=== PATIENT | male | born 1950 | race Two or more races ===

== ENCOUNTER 2016-04-23 03:41 | Inpatient (IN) | payer MEDICARE, MEDICAID ==
[~2016-04-23] VITALS: Ht 162.6 cm; Wt 62.3 kg
[~2016-04-23 03:41] MED LIST: ALBU0.084 IN; ALPR0.254 PO; ASPI325T4 PO; ATOR1TAB PO; DICY10CA12 PO; DIGO0.2570 PO; FLUT250M2 INH; GABA-494 PO; INSUINJ37 SUBCUT; INSUINJ47 IJ; IPRASOL41 NEB; LEVO500T3 PO; METFORMIN HCL 1000 MG PO; METO50TA7 PO; OMEP20CA5 PO; PANT40TA2 PO; SACC250C PO
[2016-04-23 04:20] LABS: Basophils # (auto) 0 uL; DEFINITIVE VIEW TRANSMISSION; Eosinophils # (auto) 0.1 uL; Eosinophils % (auto) 0.4 % (0.0-7.0); Hemoglobin 8.3 g/dL (13.5-17.5); Lymphocytes # (auto) 0.4 uL; Lymphocytes % (auto) 2.2 % (10.0-50.0); Mean Corpuscular Hemoglobin 27.6 pg (28.0-32.0); Mean Corpuscular Hgb Conc. 31.9 g/dL (32.0-36.0); Mean Corpuscular Volume 86.7 fL (80.0-100.0); Mean Platelet Volume 8.9 fL (7.4-10.4); Monocytes # (auto) 1.1 uL; Monocytes % (auto) 5.9 % (0.0-12.0); Neutrophils # (auto) 16.3 uL; Neutrophils % (auto) 91.5 % (37.0-80.0); Platelet Count (auto) 464 10^3/uL (140-450); Red Cell Distribution Width 18.1 % (11.6-16.0); White Blood Cell 17.9 10^3/uL (4.4-10.8)
[2016-04-23 04:37] LABS: BUN/Creatinine Ratio 45.8; Calcium 8.3 mg/dL (8.5-10.1)
[2016-04-23 04:40] LABS: Bilirubin, Total 0.4 mg/dL (0.2-1.0); Total Protein 6.3 g/dL (6.4-8.2)
[2016-04-23 04:50] LABS: Potassium 5.6 mmol/L (3.5-5.1)
[2016-04-23] MEDS ORDERED: LEVOFLOXACIN 500MG 100 ML IV ONE ×2 (06:00→11:00)
[2016-04-23] MEDS ORDERED: VANCOMYCIN 1GM/250ML D5W 250 ML IV ONE (06:00)
[2016-04-23] MEDS ORDERED: IOHEXOL 350 MG/ML 100ML IJ ONE (06:12)
[2016-04-23] MEDS ORDERED: ALBUTEROL SULF 2.5 MG/0.5ML(0.5%) NEB SOLN NEB ONE (06:15)
[2016-04-23] MEDS ORDERED: IPRATROPIUM BROM 0.5 MG/2.5ML INH SOL NEB ONE (06:15)
[2016-04-23] MEDS ORDERED: SODIUM BICARBONATE 8.4 % INJ 50ML VIAL IV ONE (06:30)
[2016-04-23] MEDS ORDERED: SODIUM POLYSTYRENE SULF 15GM/60ML SUSP PO ONE (06:30)
[2016-04-23] MEDS ORDERED: InsuLIN REG 1unit/0.01ml Soln (100units/ml) IV ONE (06:30)
[2016-04-23] MEDS ORDERED: DEXTROSE (50%) 50ML SYRG IV ONE (06:30)
[2016-04-23 08:16] LABS: Lactic Acid 2.4 mmol/L (0.4-2.0)
[2016-04-23 08:27] LABS: REFLEX LACTIC ACID YES OR NO YES
[2016-04-23 08:35] LABS: B-Type Natriuretic Peptide 791.54 pg/mL (0-100); Temperature: 22.9 C (20.0-25.0)
[2016-04-23] MEDS ORDERED: LIDOCAINE 2% JELLY UROJET 10 ML TOP ONE (09:05)
[2016-04-23 09:18] LABS: Lactic Acid 4.1 mmol/L (0.4-2.0)
[2016-04-23 09:48] LABS: REFLEX LACTIC ACID YES OR NO YES
[2016-04-23] MEDS ORDERED: ALPRAZolam 0.25 MG TAB PO PRN (10:30)
[2016-04-23] MEDS ORDERED: DICYCLOMINE HCL 10 MG CAP PO PRN (10:30)
[2016-04-23] MEDS ORDERED: VANCOMYCIN PER PHARMACY 0 MG IV SCH (10:30)
[2016-04-23] MEDS ORDERED: DEXTROSE (50%) 50ML SYRG IV PRN (10:30)
[2016-04-23] MEDS ORDERED: ACETAMINOPHEN 325 MG TAB PO PRN (10:45)
[2016-04-23] MEDS ORDERED: DOCUSATE SOD 100 MG CAP PO PRN (10:45)
[2016-04-23] MEDS ORDERED: HYDROcodone-ACET 5/325MG TAB PO PRN (10:45)
[2016-04-23] MEDS ORDERED: MORPHINE SULF INJ 2 MG/ML SYRINGE 1ML IV PRN ×2 (10:45)
[2016-04-23] MEDS ORDERED: PANTOPRAZOLE 40 MG TAB PO ONE (10:45)
[2016-04-23] MEDS ORDERED: ONDANSETRON HCL 4 MG/2 ML VIAL IV PRN (10:45)
[2016-04-23] MEDS ORDERED: METOPROLOL SUCCINATE XL 50 MG TAB PO ONE (10:45)
[2016-04-23] MEDS ORDERED: DIGOXIN 0.125 MG TAB PO ONE (10:45)
[2016-04-23] MEDS ORDERED: NITROGLYCERIN 0.4 MG SL TAB SL PRN (10:45)
[2016-04-23] MEDS ORDERED: ASPirin-EC 81 mg tab PO ONE (10:45)
[2016-04-23] MEDS ORDERED: INSULIN DETEMIR(LEVEMIR) 1unit/0.01ml Soln (100units/ml) SC ONE (10:45)
[2016-04-23 10:52] VITALS: BP 103/67
[2016-04-23] MEDS ORDERED: FAMOTIDINE 20 MG TAB PO ONE (11:00)
[2016-04-23] MEDS: ACCU-CHEK COMFORT CURVE STRIP VI SCH ×3 (12:00→22:06)
[2016-04-23] MEDS: ALBUTEROL SULF 2.5 MG/0.5ML(0.5%) NEB SOLN NEB SCH ×2 (12:20→19:15)
[2016-04-23] MEDS: IPRATROPIUM BROM 0.5 MG/2.5ML INH SOL NEB SCH ×2 (12:20→19:15)
[2016-04-23] MEDS: InsuLIN REG 1unit/0.01ml Soln (100units/ml) SC SCH ×3 (12:30→22:00)
[2016-04-23] MEDS: VANCOMYCIN 1GM/250ML D5W 250 ML IV SCH (13:05)
[2016-04-23] MEDS: SODIUM CHLOR 0.9% PF (SALINE LOCK) 10ML VIAL IV SCH ×2 (13:41→22:02)
[2016-04-23 15:58] VITALS: BP 100/64
[2016-04-23] MEDS ORDERED: SODIUM CHLORIDE 0.9% 500 ML IV ONE (17:45)
[2016-04-23 18:40] VITALS: BP 93/63
[2016-04-23] MEDS: SODIUM CHLORIDE 0.9% 1,000 ML IV SCH (18:45)
[2016-04-23] MEDS: BUDESONIDE (INHALATION) 0.5 MG/2 ML NEB NEB SCH (19:15)
[2016-04-23 20:30] VITALS: BP 92/59
[2016-04-23] MEDS: TEMAZEPAM 15 MG CAP PO PRN (21:42)
[2016-04-23] MEDS: ATORVASTATIN 20 MG TAB PO SCH (21:42)
[2016-04-23] MEDS: FAMOTIDINE 20 MG TAB PO SCH (21:42)
[2016-04-24 00:07] VITALS: BP 92/56
[2016-04-24] MEDS: ALBUTEROL SULF 2.5 MG/0.5ML(0.5%) NEB SOLN NEB SCH ×4 (00:18→18:59)
[2016-04-24] MEDS: IPRATROPIUM BROM 0.5 MG/2.5ML INH SOL NEB SCH ×4 (00:19→18:59)
[2016-04-24] MEDS: VANCOMYCIN 1GM/250ML D5W 250 ML IV SCH ×2 (00:51→13:05)
[2016-04-24] MEDS ORDERED: INSLANTI SC (01:56)
[2016-04-24] MEDS: SODIUM CHLOR 0.9% PF (SALINE LOCK) 10ML VIAL IV SCH ×3 (06:26→21:19)
[2016-04-24] MEDS: ACCU-CHEK COMFORT CURVE STRIP VI SCH ×4 (06:27→23:56)
[2016-04-24] MEDS: InsuLIN REG 1unit/0.01ml Soln (100units/ml) SC SCH ×4 (06:27→23:57)
[2016-04-24 06:47] LABS: Basophils # (auto) 0 uL; Basophils % (auto) 0.3 % (0.0-2.0); DEFINITIVE VIEW TRANSMISSION; Eosinophils # (auto) 0.1 uL; Eosinophils % (auto) 0.5 % (0.0-7.0); Hematocrit 24.9 % (41.0-53.0); Hemoglobin 7.9 g/dL (13.5-17.5); Lymphocytes # (auto) 0.5 uL; Lymphocytes % (auto) 3.4 % (10.0-50.0); Mean Corpuscular Hemoglobin 27.7 pg (28.0-32.0); Mean Corpuscular Hgb Conc. 31.7 g/dL (32.0-36.0); Mean Corpuscular Volume 87.3 fL (80.0-100.0); Mean Platelet Volume 9.9 fL (7.4-10.4); Monocytes # (auto) 1.2 uL; Monocytes % (auto) 8.7 % (0.0-12.0); Neutrophils # (auto) 11.9 uL; Neutrophils % (auto) 87.1 % (37.0-80.0); Platelet Count (auto) 359 10^3/uL (140-450); Red Cell Distribution Width 18.3 % (11.6-16.0); SUSPECT VIEW TRANSMISSION; White Blood Cell 13.6 10^3/uL (4.4-10.8)
[2016-04-24] MEDS: INSULIN DETEMIR(LEVEMIR) 1unit/0.01ml Soln (100units/ml) SC SCH (06:59)
[2016-04-24 07:08] LABS: Calcium 8.1 mg/dL (8.5-10.1); Potassium 4.3 mmol/L (3.5-5.1)
[2016-04-24 07:11] LABS: Albumin 1.7 g/dL (3.4-5.0); BUN/Creatinine Ratio 48.8
[2016-04-24 07:14] LABS: Bilirubin, Total 0.3 mg/dL (0.2-1.0)
[2016-04-24] MEDS ORDERED: PNEUMOCOCCAL VACC POLYS 25 MCG/0.5 ML VIAL IM ONE (07:30)
[2016-04-24 08:00] VITALS: BP 111/69
[2016-04-24] MEDS ORDERED: PATIENTS OWN MEDICATION PO SCH ×2 (10:00)
[2016-04-24] MEDS ORDERED: PATIENTS OWN MEDICATION IN SCH ×2 (10:00)
[2016-04-24] MEDS: BUDESONIDE (INHALATION) 0.5 MG/2 ML NEB NEB SCH ×2 (10:00→18:59)
[2016-04-24] MEDS: LINAGLIPTIN 5 MG PO SCH (10:00)
[2016-04-24] MEDS: TIOTROPIUM IN SCH (10:00)
[2016-04-24] MEDS: METOPROLOL SUCCINATE XL 50 MG TAB PO SCH (10:00)
[2016-04-24] MEDS: LEVOFLOXACIN 500MG 100 ML IV SCH (10:42)
[2016-04-24] MEDS: PANTOPRAZOLE 40 MG TAB PO SCH (10:43)
[2016-04-24] MEDS: FAMOTIDINE 20 MG TAB PO SCH ×2 (10:43→21:20)
[2016-04-24] MEDS: ASPirin-EC 81 mg tab PO SCH (10:43)
[2016-04-24] MEDS: MULTIPLE VITAMIN TAB PO SCH (10:43)
[2016-04-24] MEDS: DIGOXIN 0.125 MG TAB PO SCH (10:44)
[2016-04-24 12:00] VITALS: BP 100/68
[2016-04-24] MEDS ORDERED: methylPREDNISolone SOD SUCC 40 MG/ML VL IV ONE (14:30)
[2016-04-24 16:00] VITALS: BP 104/67
[2016-04-24] MEDS: methylPREDNISolone SOD SUCC 40 MG/ML VL IV SCH (18:10)
[2016-04-24] MEDS: ACETYLCYSTEINE 10 %(100MG/ML) SOL 4ML NEB SCH (18:59)
[2016-04-24 20:00] VITALS: BP 93/54
[2016-04-24] MEDS: SODIUM CHLORIDE 0.9% 1,000 ML IV SCH (21:19)
[2016-04-24] MEDS: ATORVASTATIN 20 MG TAB PO SCH (21:20)
[2016-04-25] VITALS (13 sets, daily range): BP systolic 93–114; BP diastolic 58–82
[2016-04-25] MEDS: methylPREDNISolone SOD SUCC 40 MG/ML VL IV SCH ×5 (00:02→23:31)
[2016-04-25] MEDS: IPRATROPIUM BROM 0.5 MG/2.5ML INH SOL NEB SCH ×5 (01:02→23:50)
[2016-04-25] MEDS: ALBUTEROL SULF 2.5 MG/0.5ML(0.5%) NEB SOLN NEB SCH ×5 (01:02→23:50)
[2016-04-25] MEDS: ACETYLCYSTEINE 10 %(100MG/ML) SOL 4ML NEB SCH ×5 (01:02→23:50)
[2016-04-25] MEDS: VANCOMYCIN 1GM/250ML D5W 250 ML IV SCH ×2 (01:46→13:21)
[2016-04-25] MEDS: SODIUM CHLORIDE 0.9% 1,000 ML IV SCH ×2 (03:05→19:45)
[2016-04-25] MEDS: SODIUM CHLOR 0.9% PF (SALINE LOCK) 10ML VIAL IV SCH ×3 (05:22→22:35)
[2016-04-25] MEDS: ACCU-CHEK COMFORT CURVE STRIP VI SCH ×4 (06:06→22:00)
[2016-04-25 06:10] LABS: Albumin 1.8 g/dL (3.4-5.0); BUN/Creatinine Ratio 42.6; Calcium 8.6 mg/dL (8.5-10.1); Potassium 4.9 mmol/L (3.5-5.1)
[2016-04-25 06:12] LABS: Bilirubin, Total 0.1 mg/dL (0.2-1.0); Total Protein 6.3 g/dL (6.4-8.2)
[2016-04-25 06:13] LABS: Basophils # (auto) 0 uL; Basophils % (auto) 0.1 % (0.0-2.0); DEFINITIVE VIEW TRANSMISSION; Eosinophils # (auto) 0 uL; Hematocrit 22.6 % (41.0-53.0); Lymphocytes # (auto) 0.3 uL; Lymphocytes % (auto) 3.1 % (10.0-50.0); Mean Corpuscular Hgb Conc. 31.2 g/dL (32.0-36.0); Mean Corpuscular Volume 89.6 fL (80.0-100.0); Mean Platelet Volume 9.6 fL (7.4-10.4); Monocytes # (auto) 0.2 uL; Monocytes % (auto) 2.1 % (0.0-12.0); Neutrophils # (auto) 9.2 uL; Neutrophils % (auto) 94.7 % (37.0-80.0); Platelet Count (auto) 353 10^3/uL (140-450); Red Cell Distribution Width 18.8 % (11.6-16.0); SUSPECT VIEW TRANSMISSION; White Blood Cell 9.8 10^3/uL (4.4-10.8)
[2016-04-25] MEDS: InsuLIN REG 1unit/0.01ml Soln (100units/ml) SC SCH ×4 (06:56→22:39)
[2016-04-25] MEDS: INSULIN DETEMIR(LEVEMIR) 1unit/0.01ml Soln (100units/ml) SC SCH (06:57)
[2016-04-25] MEDS ORDERED: DEXTROSE (50%) 50ML SYRG IV PRN (09:00)
[2016-04-25] MEDS: METOPROLOL SUCCINATE XL 50 MG TAB PO SCH (09:28)
[2016-04-25] MEDS: LEVOFLOXACIN 500MG 100 ML IV SCH (09:32)
[2016-04-25] MEDS: ASPirin-EC 81 mg tab PO SCH (09:33)
[2016-04-25] MEDS: FAMOTIDINE 20 MG TAB PO SCH ×2 (09:33→22:35)
[2016-04-25] MEDS: LINAGLIPTIN 5 MG PO SCH (09:33)
[2016-04-25] MEDS: PANTOPRAZOLE 40 MG TAB PO SCH (09:33)
[2016-04-25] MEDS: MULTIPLE VITAMIN TAB PO SCH (09:33)
[2016-04-25] MEDS: DIGOXIN 0.125 MG TAB PO SCH (09:33)
[2016-04-25] MEDS: TIOTROPIUM IN SCH (10:00)
[2016-04-25] MEDS: Boost Glucose Control 8 Ounces PO SCH (18:00)
[2016-04-25] MEDS: BUDESONIDE (INHALATION) 0.5 MG/2 ML NEB NEB SCH ×2 (18:50→19:19)
[2016-04-25] MEDS: ATORVASTATIN 20 MG TAB PO SCH (22:35)
[2016-04-25] MEDS: TEMAZEPAM 15 MG CAP PO PRN (23:31)
[2016-04-26] VITALS (10 sets, daily range): BP systolic 102–124; BP diastolic 64–82
[2016-04-26] MEDS: VANCOMYCIN 1GM/250ML D5W 250 ML IV SCH ×2 (01:11→13:11)
[2016-04-26 06:28] LABS: Basophils # (auto) 0 uL; Eosinophils # (auto) 0 uL; Hematocrit 30.4 % (41.0-53.0); Hemoglobin 9.7 g/dL (13.5-17.5); Lymphocytes # (auto) 0.2 uL; Lymphocytes % (auto) 1.5 % (10.0-50.0); Mean Corpuscular Hgb Conc. 31.9 g/dL (32.0-36.0); Mean Corpuscular Volume 87.7 fL (80.0-100.0); Mean Platelet Volume 9.7 fL (7.4-10.4); Monocytes # (auto) 0.7 uL; Monocytes % (auto) 4.6 % (0.0-12.0); Neutrophils # (auto) 13.6 uL; Neutrophils % (auto) 93.9 % (37.0-80.0); Platelet Count (auto) 336 10^3/uL (140-450); Red Cell Distribution Width 16.9 % (11.6-16.0); SUSPECT VIEW TRANSMISSION; White Blood Cell 14.5 10^3/uL (4.4-10.8)
[2016-04-26] MEDS: IPRATROPIUM BROM 0.5 MG/2.5ML INH SOL NEB SCH ×3 (06:30→16:14)
[2016-04-26] MEDS: ALBUTEROL SULF 2.5 MG/0.5ML(0.5%) NEB SOLN NEB SCH ×3 (06:30→16:14)
[2016-04-26] MEDS: ACETYLCYSTEINE 10 %(100MG/ML) SOL 4ML NEB SCH ×3 (06:30→16:15)
[2016-04-26] MEDS: methylPREDNISolone SOD SUCC 40 MG/ML VL IV SCH ×3 (06:39→18:40)
[2016-04-26] MEDS: ACCU-CHEK COMFORT CURVE STRIP VI SCH ×4 (06:39→22:07)
[2016-04-26] MEDS: SODIUM CHLOR 0.9% PF (SALINE LOCK) 10ML VIAL IV SCH ×3 (06:39→22:09)
[2016-04-26 06:42] LABS: BUN/Creatinine Ratio 42.9; Calcium 8.4 mg/dL (8.5-10.1)
[2016-04-26] MEDS: INSULIN DETEMIR(LEVEMIR) 1unit/0.01ml Soln (100units/ml) SC SCH (06:42)
[2016-04-26] MEDS: InsuLIN REG 1unit/0.01ml Soln (100units/ml) SC SCH ×4 (06:44→22:17)
[2016-04-26] MEDS: Boost Glucose Control 8 Ounces PO SCH ×2 (08:00→18:00)
[2016-04-26] MEDS: BUDESONIDE (INHALATION) 0.5 MG/2 ML NEB NEB SCH ×2 (09:39→18:30)
[2016-04-26] MEDS: TIOTROPIUM IN SCH ×2 (10:00→10:10)
[2016-04-26] MEDS: LEVOFLOXACIN 500MG 100 ML IV SCH (10:05)
[2016-04-26] MEDS: ASPirin-EC 81 mg tab PO SCH (10:06)
[2016-04-26] MEDS: LINAGLIPTIN 5 MG PO SCH (10:06)
[2016-04-26] MEDS: DIGOXIN 0.125 MG TAB PO SCH (10:07)
[2016-04-26] MEDS: PANTOPRAZOLE 40 MG TAB PO SCH (10:07)
[2016-04-26] MEDS: FAMOTIDINE 20 MG TAB PO SCH ×2 (10:07→22:06)
[2016-04-26] MEDS: MULTIPLE VITAMIN TAB PO SCH (10:07)
[2016-04-26] MEDS: METOPROLOL SUCCINATE XL 50 MG TAB PO SCH (10:09)
[2016-04-26] MEDS: SODIUM CHLORIDE 0.9% 1,000 ML IV SCH (12:25)
[2016-04-26] MEDS: ATORVASTATIN 20 MG TAB PO SCH (22:05)
[2016-04-26] MEDS: TEMAZEPAM 15 MG CAP PO PRN (22:06)
[2016-04-27] MEDS: methylPREDNISolone SOD SUCC 40 MG/ML VL IV SCH ×2 (00:38→06:51)
[2016-04-27] MEDS: VANCOMYCIN 1GM/250ML D5W 250 ML IV SCH (00:39)
[2016-04-27] MEDS: ACETYLCYSTEINE 10 %(100MG/ML) SOL 4ML NEB SCH ×2 (02:04→06:09)
[2016-04-27] MEDS: ALBUTEROL SULF 2.5 MG/0.5ML(0.5%) NEB SOLN NEB SCH ×2 (02:04→06:09)
[2016-04-27] MEDS: IPRATROPIUM BROM 0.5 MG/2.5ML INH SOL NEB SCH ×2 (02:04→06:09)
[2016-04-27 04:37] VITALS: BP 115/69
[2016-04-27] MEDS: SODIUM CHLORIDE 0.9% 1,000 ML IV SCH (04:41)
[2016-04-27 06:20] LABS: Basophils # (auto) 0 uL; Eosinophils # (auto) 0 uL; Hematocrit 30.8 % (41.0-53.0); Hemoglobin 9.6 g/dL (13.5-17.5); Lymphocytes # (auto) 0.2 uL; Lymphocytes % (auto) 1.2 % (10.0-50.0); Mean Corpuscular Hgb Conc. 31.4 g/dL (32.0-36.0); Mean Corpuscular Volume 89.2 fL (80.0-100.0); Monocytes # (auto) 0.5 uL; Monocytes % (auto) 3.3 % (0.0-12.0); Neutrophils # (auto) 13.6 uL; Neutrophils % (auto) 95.5 % (37.0-80.0); Platelet Count (auto) 313 10^3/uL (140-450); Red Cell Distribution Width 17.8 % (11.6-16.0); White Blood Cell 14.2 10^3/uL (4.4-10.8)
[2016-04-27 06:31] LABS: BUN/Creatinine Ratio 56.9; Calcium 9.2 mg/dL (8.5-10.1); Potassium 4.9 mmol/L (3.5-5.1)
[2016-04-27] MEDS: INSULIN DETEMIR(LEVEMIR) 1unit/0.01ml Soln (100units/ml) SC SCH (06:56)
[2016-04-27] MEDS: InsuLIN REG 1unit/0.01ml Soln (100units/ml) SC SCH (06:56)
[2016-04-27] MEDS: SODIUM CHLOR 0.9% PF (SALINE LOCK) 10ML VIAL IV SCH (06:57)
[2016-04-27] MEDS: ACCU-CHEK COMFORT CURVE STRIP VI SCH (06:57)
[2016-04-27 08:00] VITALS: BP 105/70
[2016-04-27] MEDS: Boost Glucose Control 8 Ounces PO SCH (08:00)
[2016-04-27] MEDS: FAMOTIDINE 20 MG TAB PO SCH (08:48)
[2016-04-27] MEDS: MULTIPLE VITAMIN TAB PO SCH (08:48)
[2016-04-27] MEDS: DIGOXIN 0.125 MG TAB PO SCH (08:48)
[2016-04-27] MEDS: PANTOPRAZOLE 40 MG TAB PO SCH (08:48)
[2016-04-27] MEDS: ASPirin-EC 81 mg tab PO SCH (08:48)
[2016-04-27] MEDS: LINAGLIPTIN 5 MG PO SCH (08:49)
[2016-04-27] MEDS: TIOTROPIUM IN SCH (08:49)
[2016-04-27] MEDS: METOPROLOL SUCCINATE XL 50 MG TAB PO SCH (08:49)
[2016-04-27] MEDS: BUDESONIDE (INHALATION) 0.5 MG/2 ML NEB NEB SCH (09:50)
[2016-04-27] MEDS ORDERED: predniSONE 20 MG TAB PO SCH (10:00)
== END 2016-04-27 10:18 | disposition hospice, home (50) | DRG 180 ==
LOC: EDBD 03:41 → ER 03:43 → TELE 03:44 → DOU IN ICU 20:30 → TELE-CENTR 04-26 10:21
PROVIDERS: ADMIT Internal Medicine; ATTEND Family Medicine
PROC: 5A09357 Assistance with Respiratory Ventilation, Less than 24 Consecutive Hours, Continuous Positive Airway Pressure (ICD-10-PCS; principal; 2016-04-23)
DX: C34.90 Malignant neoplasm of unspecified part of unspecified bronchus or lung (principal); J18.9 Pneumonia, unspecified organism; E43 Unspecified severe protein-calorie malnutrition; J96.21 Acute and chronic respiratory failure with hypoxia; J44.0 Chronic obstructive pulmonary disease with (acute) lower respiratory infection; J44.1 Chronic obstructive pulmonary disease with (acute) exacerbation; E87.1 Hypo-osmolality and hyponatremia; I31.3 Pericardial effusion (noninflammatory); J45.901 Unspecified asthma with (acute) exacerbation; J98.11 Atelectasis; C79.9 Secondary malignant neoplasm of unspecified site; D63.8 Anemia in other chronic diseases classified elsewhere; I10 Essential (primary) hypertension; E87.5 Hyperkalemia; E78.5 Hyperlipidemia, unspecified; E11.9 Type 2 diabetes mellitus without complications; E83.51 Hypocalcemia; E87.6 Hypokalemia; E87.8 Other disorders of electrolyte and fluid balance, not elsewhere classified; I25.10 Atherosclerotic heart disease of native coronary artery without angina pectoris; I27.2 Other secondary pulmonary hypertension; Z51.5 Encounter for palliative care; Z53.20 Procedure and treatment not carried out because of patient's decision for unspecified reasons; Z66 Do not resuscitate; Z85.118 Personal history of other malignant neoplasm of bronchus and lung; Z99.81 Dependence on supplemental oxygen; Z98.890 Other specified postprocedural states; Z87.891 Personal history of nicotine dependence; Z92.21 Personal history of antineoplastic chemotherapy; Z68.23 Body mass index [BMI] 23.0-23.9, adult
CPT/HCPCS: 36415; 36430; 36600; 51702; 71010; 71275; 80048; 80053; 80202; 82805; 82962; 83036; 83605; 83880; 84484; 85025; 85379; 86850; 86900; 86901; 86920; 87040; 87081; 93005; 93306; 94640; 94660; 96365; 96366; 96367; 96368; 96375; J1815; J1956